=== PATIENT | female | born 1995 | race Caucasian/White ===

== ENCOUNTER → 2017-02-03 | Outpatient (CLI) | payer BC, MEDICAID, OTHER ==
[~2017-02-03] MED LIST: MOTR200T44 PO; PNVTAB4 PO; TYLE167L PO
[2017-02-03 18:16] LABS: BASO % 0.2 % (0.0-1.0); EOS # 0.2 K/mm3 (0.0-0.50); EOS % 2.3 % (0.0-3.0); LARGE UNSTAINED CELL # 0.1 K/mm3 (0.0-0.4); LARGE UNSTAINED CELL % 1.2 % (0.0-4.0); LYMPH # 1.9 K/mm3 (1.5-6.5); LYMPH % 23.8 % (24.0-44.0); MEAN CORPUSCULAR HEMOGLOBIN 31.2 pg (27.0-33.0); MEAN CORPUSCULAR HGB CONC 33.2 g/dl (32.0-36.5); MEAN CORPUSCULAR VOLUME 93.8 fl (80.0-96.0); MONO # 0.4 K/mm3 (0.0-0.8); MONO % 4.6 % (0.0-5.0); NEUTROPHILS # 5.5 K/mm3 (1.8-7.7); NEUTROPHILS % 67.9 % (36.0-66.0); PLATELET COUNT, AUTOMATED 224 k/mm3 (150-450); RED CELL DISTRIBUTION WIDTH 11.7 % (11.5-14.5); WHITE BLOOD COUNT 8.1 K/mm3 (4.0-10.0)
[2017-02-04 10:28] LABS: HBsAg Prenatal NEGATIVE (NEGATIVE)
== END ==
LOC: M LRY 13:53
PROVIDERS: ATTEND Advanced Practice Midwife
DX: Z36 Encounter for antenatal screening of mother (principal); Z3A.00 Weeks of gestation of pregnancy not specified

== ENCOUNTER → 2017-02-19 | Outpatient (CLI) | payer OTHER ==
--- NOTE | 2017-02-20 08:21 | REP ---
Clinical: Dating and viability. Technique: Transabdominal first trimester obstetrical ultrasound with color Doppler evaluation. Findings: Single live early intrauterine is appreciated. Biometrical measurements correspond to a 13 weeks 6 days gestational age with estimated date of delivery 08/21/2017. heart rate equals 147 beats per minute. A small subchorionic hemorrhage is identified measuring approximately 2.9 x 2.9 x 1.8 cm. Impression: Single live early intrauterine at 13 weeks 6 days gestational age. Small subchorionic hemorrhage. Complete anatomical assessment should be performed and 19-20 weeks. Signed by Tay Tolliver MD 02/20/2017 06:14 A
== END ==
LOC: M LRY 08:10
PROVIDERS: ATTEND Advanced Practice Midwife
DX: Z36 Encounter for antenatal screening of mother (principal); Z3A.13 13 weeks gestation of pregnancy

== ENCOUNTER → 2017-03-18 | Outpatient (REF) | payer OTHER | LOC: M LAB REF 13:29 | PROVIDERS: ATTEND Advanced Practice Midwife | DX: Z36 Encounter for antenatal screening of mother (principal); Z3A.00 Weeks of gestation of pregnancy not specified ==

== ENCOUNTER → 2017-03-30 | Outpatient (CLI) | payer OTHER ==
--- NOTE | 2017-03-30 17:02 | REP ---
Obstetric sonography: History: Supervision of for anatomy. Findings: Scanning through the gravid uterus demonstrates a viable single intrauterine gestation in a cephalic lie. motion is observed and heart rate is recorded at 139 beats per minute. A posterior left lateral low-lying placenta is seen without evidence of abruption, grade zero. Amniotic fluid is subjectively normal. Closed cervical length is 4.7 cm. No extrauterine abnormality is observed. No anomaly is seen. spine is less than optimally seen due to position. There are small bilateral choroid plexus cysts. The following additional anatomic structures are identified and felt to be sonographically unremarkable: cranium, cavum, cerebellum and posterior fossa, nuchal fold, face and profile, lungs, four-chamber heart with left and right ventricular outflow tract views, diaphragm, left-sided stomach, abdominal wall cord insertion, three-vessel umbilical cord, kidneys and bladder, upper and lower extremities. Biometry chart: BPD 4.4 cm = 19 weeks 1 day HC 17.0 cm = 19 weeks 4 days AC 14.6 cm = 19 weeks 6 days FL 3.0 cm = 19 weeks 1 day HL 2.7 cm = 18 weeks 5 days CD 2.0 cm = 19 weeks 3 days HC/AC ratio normal 1.16. Cephalic index normal 0.69. Estimated weight 298 grams, 0 pounds 10 ounces, 52nd percentile for 19 weeks 3 days. Impression: Viable single intrauterine gestation at 19 weeks 2 days by today's composite criteria. Expected gestational age estimate based on prior sonography is 19 weeks 3 days. BRANDIN by prior sonography August 21, 2017. Bilateral small choroid plexus cysts are seen. spine less than optimally visualized. Signed by Chito Ballesteros MD 03/30/2017 05:02 P
== END ==
LOC: M LRY 08:15
PROVIDERS: ATTEND Advanced Practice Midwife
DX: Z36 Encounter for antenatal screening of mother (principal); Z3A.19 19 weeks gestation of pregnancy

== ENCOUNTER → 2017-04-24 | Outpatient (CLI) | payer OTHER ==
--- NOTE | 2017-04-24 17:52 | REP ---
REASON: Followup choroid plexus cyst and spine. Multiple sonographic images of the gravid uterus show a single living intrauterine gestation in variable positions. Doppler interrogation of the heart shows a heart rate of beats per minute. The placenta is anterior and not low lying. The subjective aminotic fluid volume is within normal limits. The cervix measures 4.5 cm in length and is closed. Evaluation of the maternal adnexal spaces showed no abnormalities. BPD 5.5 cm 22 weeks 6 days HC 21.1 cm 23 weeks 1 day AC 19.2 cm 24 weeks 0 days FL 4.0 cm 22 weeks 6 days The estimated weight is 594 grams which is at the 62nd percentile for a 22 week 6 day gestational age. The choroid plexus was seen normally today as was the spine. IMPRESSION: Single living intrauterine gestation as described above with an estimated gestational age of 22 weeks 6 days via composite criteria. No anomalies were detected. Signed by Elton Bass DO 04/29/2017 04:25 P
== END ==
LOC: M LRY 13:41
PROVIDERS: ATTEND Specialist
DX: Z36 Encounter for antenatal screening of mother (principal); Z3A.22 22 weeks gestation of pregnancy

== ENCOUNTER 2017-06-10 21:41 | Outpatient (CLI) | payer OTHER | END 2017-06-10 23:45 | disposition home or self-care (01) | LOC: M LDO 21:41 | PROVIDERS: ATTEND Specialist | DX: O99.89 Other specified diseases and conditions complicating pregnancy, childbirth and the puerperium (principal); Z3A.29 29 weeks gestation of pregnancy; V49.9XXA Car occupant (driver) (passenger) injured in unspecified traffic accident, initial encounter; R10.9 Unspecified abdominal pain; X58.XXXA Exposure to other specified factors, initial encounter; Y93.9 Activity, unspecified; Y92.9 Unspecified place or not applicable; Y99.8 Other external cause status ==

== ENCOUNTER → 2017-06-10 | Outpatient (CLI) | payer OTHER ==
[2017-06-10 19:04] LABS: BASO % 0.1 % (0.0-1.0); EOS # 0.2 K/mm3 (0.0-0.50); EOS % 1.7 % (0.0-3.0); LARGE UNSTAINED CELL # 0.1 K/mm3 (0.0-0.4); LARGE UNSTAINED CELL % 0.9 % (0.0-4.0); LYMPH # 1.4 K/mm3 (1.5-6.5); MEAN CORPUSCULAR HEMOGLOBIN 32.9 pg (27.0-33.0); MEAN CORPUSCULAR VOLUME 93.9 fl (80.0-96.0); MONO # 0.3 K/mm3 (0.0-0.8); MONO % 3.2 % (0.0-5.0); NEUTROPHILS # 8.2 K/mm3 (1.8-7.7); NEUTROPHILS % 80.1 % (36.0-66.0); PLATELET COUNT, AUTOMATED 258 k/mm3 (150-450); RED CELL DISTRIBUTION WIDTH 12.2 % (11.5-14.5); WHITE BLOOD COUNT 10.3 K/mm3 (4.0-10.0)
== END ==
LOC: M SMT 13:45
PROVIDERS: ATTEND Advanced Practice Midwife
DX: Z34.83 Encounter for supervision of other normal pregnancy, third trimester (principal)

== ENCOUNTER 2017-08-28 11:31 | Inpatient (IN) | payer OTHER ==
[~2017-08-28] VITALS: Ht 170.2 cm; Wt 104.5 kg
[2017-08-28] VITALS (25 sets, daily range): BP systolic 113–151; BP diastolic 50–99
[2017-08-28] MEDS ORDERED: LACTATED RINGER'S 1000 ML IV STA (11:50)
[2017-08-28] MEDS ORDERED: LR 1,000 ML IV SCH (12:00)
--- NOTE | 2017-08-28 12:09 | HPEPDOC ---
[facility] Medical History & Physical Date of Admission Aug 28, [address] [place] Attending Physician: Delia Leal CNM History and Physical HISTORY & PHYSICAL EXAMINATION DATE OF ADMISSION: 08/28/2017 21-year-old, 2, para 1001, at 41 0/7 weeks gestation by last menstrual period of 11/28/2016 for an estimated date of delivery of 08/21/2017 presents with complaints of contractions starting around 0700. Upon evaluation, she is 40 cm, 85% effaced, -1 station. She reports active movement. Denies loss of fluid or bleeding. Sono at 13 weeks 2 days confirmed her due date. Prepregnancy weight was 190. Total weight gain 33 pounds. She has been normotensive through the . Last office visit was at 40 weeks 6 days on 08/27/2017. has been uncomplicated. Anatomy scan within normal limits. OB HISTORY: 02/2014 41 0/7 weeks 9lb 8oz female with an epidural ALLERGIES: NKDA MEDICAL/SURGICAL HISTORY: unremarkable FAMILY HISTORY: Noncontributory. SOCIAL HISTORY: Single. Father of the baby is present at the bedside, Supportive. Denies tobacco, alcohol or drugs. No history sexually transmitted infections. OBJECTIVE: Labs are O+, antibody negative. Initial hemoglobin and hematocrit 13.6/41.1 with platelets of 224. Rubella immune. VDRL, hepatitis B, hepatitis C, HIV, gonorrhea, chlamydia all negative. Urine culture >100,000 ecoli treated on 2016. Genetic screening declined. 1 hour GCT 89. Group B strep is negative. VITAL SIGNS: Stable. Coping well, breathing with contractions.. Abdomen is soft , gravid, nontender, longitudinal lie, vertex by Joni. Contractions 3-4 minutes apart, 40-50 seconds, moderate to palpation. heart 120, moderate variability with accelerations, + early decels. category 1 tracing. Sterile vaginal exam: 4 cm, 85% effaced, -1 station, intact membranes and cephalic. ASSESSMENT: 21-year-old, 2, at 41weeks 0 days gestation, in active labor , category 1 tracing. PLAN:Admit to L and D with routine labor orders. Patient plans on an epidural for labor coping. Augment prn. Anticipate normal spontaneous vaginal . Vital Signs Vital Signs Date Time Temp Pulse Resp B/P (MAP) Pulse Ox O2 Delivery O2 Flow Rate FiO2 08/28/17 11:45 96.8 74 18 122/75 (91) Allergies Coded Allergies: No Known Allergies (Unverified , 03/07/14) Delia Leal CNM Aug 28, 2017 12:09
[2017-08-28 12:34] LABS: MEAN CORPUSCULAR HEMOGLOBIN 30.4 pg (27.0-33.0); MEAN CORPUSCULAR HGB CONC 33.4 g/dl (32.0-36.5); PLATELET COUNT, AUTOMATED 303 10^3/uL (150-450); RED CELL DISTRIBUTION WIDTH 12.9 % (11.5-14.5); WHITE BLOOD COUNT 18.5 10^3/uL (4.0-10.0)
[2017-08-28] MEDS ORDERED: FENTANYL 2MCG/ML ROPIVACAINE 0.2% IN 0.9% NACL 200ML IVBAG As Ordered ONE (12:52)
--- NOTE | 2017-08-28 13:51 | IPNPDOC ---
Text Note Date of Service The patient was seen on 08/28/17. NOTE Progress Notes: S:Patient comfortable with her epidural. O: at bedside, supportive, shaking FHR:120, moderate variability, + accel, - decels CTX:every 2 mins, 50-60 secs long, moderate to palpate SVE: 6, 100%/0/AROM thin scant mec A: 22 yo 41 0/7 weeks gestation. Category 1 tracing P: Anticipate VS,Fishbone, I+O VS, Fishbone, I+O Laboratory Tests 08/28/17 12:27 Red Blood Count 4.24, Mean Corpuscular Volume 91.0, Mean Corpuscular Hemoglobin 30.4, Mean Corpuscular Hemoglobin Concent 33.4, Red Cell Distribution Width 12.9 Vital Signs Date Time Temp Pulse Resp B/P (MAP) Pulse Ox O2 Delivery O2 Flow Rate FiO2 08/28/17 11:45 96.8 74 18 122/75 (91) Delia Leal CNM Aug 28, 2017 13:51
[2017-08-28] MEDS ORDERED: EPIDURAL COMMENT XX SCH (14:00)
[2017-08-28] MEDS ORDERED: FENTANYL/ROPIVACAINE/NACL BAG 200 ML EPIDURAL SCH (14:00)
[2017-08-28] MEDS ORDERED: NALOXONE INJ 0.4 MG/1 ML VIAL (J2310) IV PRN (14:00)
[2017-08-28] MEDS ORDERED: ePHEDrine SULFATE 25 MG/5 ML(5MG/ML) SYRINGE IV PRN (14:00)
[2017-08-28] MEDS ORDERED: LACTATED RINGER'S 1000 ML IV PRN (14:00)
[2017-08-28] MEDS ORDERED: ONDANSETRON 4MG/2ML VIAL (J2405) IV PRN (14:00)
[2017-08-28] MEDS ORDERED: REFRIGERATOR IV KEYS XX PRN (14:00)
[2017-08-28] MEDS ORDERED: EPIDURAL/PCA KEYS XX PRN (14:00)
[2017-08-28] MEDS ORDERED: diphenhydrAMINE INJ 50MG/ML VIAL (J1200) IV PRN (14:00)
[2017-08-28] MEDS ORDERED: OXYTOCIN 30 UNITS IN 0.9% NaCl 500ML IV BAG (J2590) As Ordered ONE (15:35)
[2017-08-28] MEDS ORDERED: MOM 30ML SUSPENSION UDC PO PRN (16:30)
[2017-08-28] MEDS ORDERED: ACETAMINOPHEN 500 MG TAB PO PRN (16:30)
[2017-08-28] MEDS ORDERED: ANUSOL HC CREAM 30GM TOP PRN (16:30)
[2017-08-28] MEDS ORDERED: MEASLES,MUMPS,RUBELLA VACCINE INJ (MMR-II) (90707) SC SCH (16:30)
[2017-08-28] MEDS ORDERED: DIBUCAINE 1% OINTMENT 30GM TOP PRN (16:30)
[2017-08-28] MEDS ORDERED: RHOGAM 300 MCG (1500 IU) INJ (J2790) IM SCH (16:30)
[2017-08-28] MEDS ORDERED: DOCUSATE SODIUM 100 MG CAP PO PRN (16:30)
[2017-08-28] MEDS ORDERED: OXYTOCIN DRIP 30 UNITS in APPROPRIATE DILUENT 1 EA IV SCH (16:30)
--- NOTE | 2017-08-28 16:47 | DNPDOC ---
[facility] Delivery Note Delivery Note DATE OF DELIVERY: 08/28/2017 PREDELIVERY DIAGNOSIS: 41 0/7 weeks' gestation and labor. POST DELIVERY DIAGNOSIS: Delivered. PROCEDURE: Spontaneous vaginal delivery. PROVIDER: Dinorah Leal CNM and Maria R CASTILLO ANESTHESIA: epidural. ESTIMATED BLOOD LOSS: 200 mL. FINDINGS: 7 pound 15 ounce male , Score 8/9, no nuchal cord. DELIVERY SUMMARY: Patient is a 22-year-old 2 now para 2002 who was admitted to labor and delivery for active labor that started this morning at 0700. Patient utilized an epidural for labor coping. AROM at 1344 with scant light meconium stained. Fully dilated at 1532. Viable male infant delivered OA to ROT and corpus immediately followed at 1548. Infant brought to maternal abdomen for transitioning. Tactile stimulation and bulb suctioned of mouth and nares by nurse. Cord clamped times two and cut by FOB approximately one minute after . brought to warmer for assessment by nurses. Placenta delivered intact, Tavia mechanism with trailing membranes with three vessel cord at 1604. Noted to have separation in the membranes from the placenta. Fundus was firmed with massage and IV Pitocin bolus. Vagina and perineum were noted to have a first degree midline laceration repaired with a 3-0 vicryl rapide with excellent hemostasis. EBL 200ml. weighed 3610 grams/7 lb 15 oz, scores of 8/9. Parents are naming their son Sin Espinoza VIII. They plan to bottle feed their infant. At close of delivery sponge count, instruments and sharps were counted and verified. was directly supervised under my direction. Delia Leal CNM Aug 28, 2017 16:47
[2017-08-28] MEDS: METHYLERGONOVINE MALEATE 0.2 MG TAB PO SCH ×2 (17:08→22:42)
[2017-08-28] MEDS: IBUPROFEN 800 MG TAB PO PRN (18:33)
[2017-08-29] MEDS: IBUPROFEN 800 MG TAB PO PRN (00:46)
[2017-08-29] MEDS: METHYLERGONOVINE MALEATE 0.2 MG TAB PO SCH ×2 (05:21→11:07)
[2017-08-29 05:59] VITALS: BP 107/56
[2017-08-29] MEDS ORDERED: PRENATAL VITAMINS CHEWABLE TABLET PO SCH (09:00)
[2017-08-29] MEDS ORDERED: METHYLERGONOVINE MALEATE 0.2 MG TAB PO PRN (12:00)
[2017-08-29] MEDS ORDERED: PRENTAB9 PO (14:03)
[2017-08-29] MEDS ORDERED: IBUP-1114 PO (14:03)
[2017-08-29] MEDS ORDERED: ACET50TA PO (14:03)
== END 2017-08-29 17:40 | disposition home or self-care (01) | DRG 560 ==
LOC: M LDO 11:31 → M LDI 11:59 → M OBS 18:02
PROVIDERS: ADMIT Advanced Practice Midwife; ATTEND Advanced Practice Midwife
PROC: 10E0XZZ Delivery of Products of Conception, External Approach (ICD-10-PCS; principal; 2017-08-28)
PROC: 0HQ9XZZ Repair Perineum Skin, External Approach (ICD-10-PCS; 2017-08-28)
PROC: 10907ZC Drainage of Amniotic Fluid, Therapeutic from Products of Conception, Via Natural or Artificial Opening (ICD-10-PCS; 2017-08-28)
DX: O48.0 Post-term pregnancy (principal); O70.0 First degree perineal laceration during delivery; Z37.0 Single live birth; Z3A.41 41 weeks gestation of pregnancy

== ENCOUNTER → 2018-08-02 | Outpatient (REF) | payer OTHER | LOC: M SFHCLERA 17:04 | DX: J02.9 Acute pharyngitis, unspecified (principal) ==

== ENCOUNTER 2019-08-25 00:21 | Emergency (ER) | payer OTHER, SELFPAY ==
[~2019-08-25] VITALS: Ht 172.7 cm; Wt 90.9 kg
[~2019-08-25 00:21] MED LIST changes: +IBUP-1114 PO; +MAPA500T2 PO; +PRENTAB9 PO
[2019-08-25] MEDS ORDERED: ONDANSETRON 4MG/2ML VIAL (J2405) IV ONE (00:45)
[2019-08-25] MEDS ORDERED: NS 1,000 ML IV ONE (00:45)
[2019-08-25 01:06] LABS: BASO # 0.1 10^3/uL (0.0-0.2); BASO % 0.4 % (0.0-1.0); EOS # 0.2 10^3/uL (0.0-0.5); EOS % 1.6 % (0.0-3.0); HEMATOCRIT 38.7 % (36.0-47.0); HEMOGLOBIN 12.6 g/dl (12.0-15.5); LYMPH # 1.4 10^3/uL (1.5-5.0); LYMPH % 10.1 % (24.0-44.0); MEAN CORPUSCULAR HEMOGLOBIN 30.2 pg (27.0-33.0); MEAN CORPUSCULAR HGB CONC 32.6 g/dl (32.0-36.5); MEAN CORPUSCULAR VOLUME 92.8 fl (80.0-96.0); MONO # 0.7 10^3/uL (0.0-0.8); MONO % 4.8 % (0.0-5.0); NEUTROPHILS # 11.6 10^3/uL (1.5-8.5); NEUTROPHILS % 82.8 % (36.0-66.0); PLATELET COUNT, AUTOMATED 240 10^3/uL (150-450); RED BLOOD COUNT 4.17 10^6/uL (4.00-5.40)
[2019-08-25 01:45] VITALS: BP 107/63
[2019-08-25 01:45] LABS: ALBUMIN 3.9 GM/DL (3.2-5.2); ALT/SGPT 16 U/L (12-78); BILIRUBIN,DIRECT < 0.1 MG/DL (0.0-0.2); BILIRUBIN,TOTAL 0.2 MG/DL (0.2-1.0); BLOOD UREA NITROGEN 17 MG/DL (7-18); CARBON DIOXIDE LEVEL 26 MEQ/L (21-32); CHLORIDE LEVEL 105 MEQ/L (98-107); CREATININE FOR GFR 0.87 MG/DL (0.55-1.30); GLOMERULAR FILTRATION RATE > 60.0 (>60); GLUCOSE, FASTING 104 MG/DL (70-100); LIPASE 98 U/L (73-393); SODIUM LEVEL 139 MEQ/L (136-145); TOTAL PROTEIN 6.7 GM/DL (6.4-8.2)
[2019-08-25 01:57] LABS: HCG, SERUM QUALITATIVE NEGATIVE (NEGATIVE)
[2019-08-25] MEDS ORDERED: ZOFR4TAB16 PO (04:14)
--- NOTE | 2019-08-25 08:10 | REP ---
Clinical: Shortness of breath . Comparison: None . Technique: PA and lateral. Findings: The mediastinum and cardiac silhouette are normal. The lung torres are clear and without acute consolidation, effusion, or pneumothorax. The skeletal structures are intact and normal. Impression: 1. No acute cardiopulmonary process. Electronically Signed by Tay Tolliver MD 08/25/2019 08:01 A
--- NOTE | 2019-08-25 18:00 | ECGEPIP ---
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
== END 2019-08-25 04:44 | disposition home or self-care (01) ==
LOC: M ED 00:21
DX: R11.2 Nausea with vomiting, unspecified (principal)
CPT/HCPCS: 71046; 80048; 80076; 83690; 84703; 85025; 93005; 93041; 96361; 96374; 99284; J2405

== ENCOUNTER → 2019-10-20 | Outpatient (REF) | payer OTHER ==
[~2019-10-20] MED LIST changes: +ZOFR4TAB16 PO
== END ==
LOC: M SFHCLERA 10:35
PROVIDERS: ATTEND Nurse Practitioner Family
DX: J02.9 Acute pharyngitis, unspecified (principal)

== ENCOUNTER 2022-06-25 17:09 | Emergency (ER) | payer MEDICAID ==
[~2022-06-25] VITALS: Ht 170.2 cm; Wt 100.0 kg
[2022-06-25] MEDS ORDERED: MORPHINE 4 MG/ML 1ML VIAL/SYRINGE IV ONE ×3 (17:25→20:45)
[2022-06-25] MEDS ORDERED: ONDANSETRON 4MG 2ML VIAL IV ONE ×2 (17:25→21:10)
[2022-06-25] MEDS ORDERED: BOOSTRIX/ADACEL VACCINE (DIPHTH/PERTUSS/ACELL/TETANUS) 0.5ML SYR IM ONE (17:25)
[2022-06-25 17:49] LABS: HEMATOCRIT 34.8 % (36.0-47.0); HEMOGLOBIN 11.3 g/dl (12.0-15.5); MEAN CORPUSCULAR HEMOGLOBIN 29.7 pg (27.0-33.0); MEAN CORPUSCULAR HGB CONC 32.5 g/dl (32.0-36.5); MEAN CORPUSCULAR VOLUME 91.3 fl (80.0-96.0); PLATELET COUNT, AUTOMATED 257 10^3/uL (150-450); RED BLOOD COUNT 3.81 10^6/uL (4.00-5.40); WHITE BLOOD COUNT 9.6 10^3/uL (4.0-10.0)
[2022-06-25 17:54] LABS: INR 0.98; PROTHROMBIN TIME 13.4 SECONDS (12.7-14.5)
[2022-06-25] MEDS ORDERED: ceFAZolin SOD 2 GM in IV 1 EA IV ONE (18:00)
[2022-06-25 18:09] LABS: HCG, SERUM QUALITATIVE NEGATIVE (NEGATIVE)
[2022-06-25 18:22] LABS: BLOOD UREA NITROGEN 16 MG/DL (7-18); CALCIUM LEVEL 8.8 MG/DL (8.5-10.1); CARBON DIOXIDE LEVEL 27 MEQ/L (21-32); CHLORIDE LEVEL 108 MEQ/L (98-107); CREATININE FOR GFR 1.05 MG/DL (0.55-1.30); GLOMERULAR FILTRATION RATE > 60.0 (>60); GLUCOSE, FASTING 92 MG/DL (70-100); POTASSIUM SERUM 4.2 MEQ/L (3.5-5.1); SODIUM LEVEL 140 MEQ/L (136-145)
[2022-06-25 18:37] LABS: RSV AMPLIFICATION NEGATIVE (NEGATIVE)
[2022-06-25 20:45] VITALS: BP 137/87
== END 2022-06-25 21:17 | disposition short-term general hospital (02) ==
LOC: M ED 17:09 → EDBD 17:09 → M ED 21:17
DX: S68.610A Complete traumatic transphalangeal amputation of right index finger, initial encounter (principal); W31.2XXA Contact with powered woodworking and forming machines, initial encounter; Y92.009 Unspecified place in unspecified non-institutional (private) residence as the place of occurrence of the external cause; Y93.89 Activity, other specified; Y99.9 Unspecified external cause status
CPT/HCPCS: 73140; 80048; 84703; 85027; 85610; 87631; 90471; 90715; 96365; 96374; 96375; 99284; J0690; J2270; J2405

== ENCOUNTER 2023-08-10 14:46 | Emergency (ER) | payer OTHER ==
[~2023-08-10] VITALS: Ht 170.2 cm; Wt 90.9 kg
[2023-08-10 14:46] VITALS: BP 118/68; TEMP 97.9
== END 2023-08-10 18:15 | disposition left against medical advice (07) ==
LOC: M ED 14:46
DX: Z53.21 Procedure and treatment not carried out due to patient leaving prior to being seen by health care provider (principal)

== ENCOUNTER 2023-12-16 05:00 | Emergency (ER) | payer OTHER ==
[~2023-12-16] VITALS: Ht 170.2 cm; Wt 81.8 kg
[2023-12-16] MEDS: NS 1,000 ML IV ONE (05:10)
[2023-12-16 05:34] LABS: BASO # 0.1 10^3/uL (0.0-0.2); BASO % 0.8 % (0.0-1.0); EOS # 0.3 10^3/uL (0.0-0.5); EOS % 3.4 % (0.0-3.0); HEMATOCRIT 33.7 % (36.0-47.0); HEMOGLOBIN 11.6 g/dl (12.0-15.5); LYMPH # 2.3 10^3/uL (1.5-5.0); LYMPH % 28.8 % (24.0-44.0); MEAN CORPUSCULAR HEMOGLOBIN 31.5 pg (27.0-33.0); MEAN CORPUSCULAR HGB CONC 34.4 g/dl (32.0-36.5); MEAN CORPUSCULAR VOLUME 91.6 fl (80.0-96.0); MONO # 0.5 10^3/uL (0.0-0.8); MONO % 6.1 % (2.0-8.0); NEUTROPHILS # 4.8 10^3/uL (1.5-8.5); NEUTROPHILS % 60.6 % (36.0-66.0); PLATELET COUNT, AUTOMATED 260 10^3/uL (150-450); RED BLOOD COUNT 3.68 10^6/uL (4.00-5.40); WHITE BLOOD COUNT 7.9 10^3/uL (4.0-10.0)
[2023-12-16 07:13] VITALS: TEMP 97.8
[2023-12-16 08:00] VITALS: BP 113/56; O2SAT 99
== END 2023-12-16 08:15 | disposition home or self-care (01) ==
LOC: M ED 05:00 → EDBD 05:00 → M ED 08:15
DX: O03.9 Complete or unspecified spontaneous abortion without complication (principal)